=== PATIENT | female | born 1950 | race Caucasian/White ===

== ENCOUNTER → 2017-08-02 | Outpatient (CLI) | payer MEDICARE, OTHER ==
[2017-08-02 09:44] LABS: HCT 42.3 % (34.0-46.0); HGB 14.1 gm/dL (11.4-16.0); MCH 32.1 pg (25.0-35.0); MCHC 33.3 g/dL (31.0-37.0); MCV 96.2 fL (80.0-100.0); Mean Platelet Volume 7.3; Platelet Count 267 k/uL (150-450); RBC 4.39 m/uL (3.80-5.40); RDW 13.7 % (11.5-15.5); WBC 10.5 k/uL (3.8-10.6)
[2017-08-02 10:31] LABS: ALT 25 U/L (9-52); AST 18 U/L (14-36); Albumin 3.7 g/dL (3.5-5.0); Alkaline Phosphatase 107 U/L (38-126); Anion Gap 12 mmol/L; Blood Urea Nitrogen 24 mg/dL (7-17); Calcium 9.6 mg/dL (8.4-10.2); Carbon Dioxide 25 mmol/L (22-30); Chloride 107 mmol/L (98-107); Cholesterol 162 mg/dL (<200); Glucose 93 mg/dL (74-99); HDL Cholesterol 33 mg/dL (40-60); LDL Cholesterol,Calculated 102 mg/dL (0-99); Potassium 4.3 mmol/L (3.5-5.1); Sodium 144 mmol/L (137-145); Total Bilirubin 0.4 mg/dL (0.2-1.3); Total Protein 6.6 g/dL (6.3-8.2); Triglycerides 134 mg/dL (<150)
== END | disposition home or self-care (01) ==
LOC: LABWHC1 09:07
PROVIDERS: ATTEND Internal Medicine Clinical Cardiac Electrophysiology
DX: E78.5 Hyperlipidemia, unspecified (principal); I82.409 Acute embolism and thrombosis of unspecified deep veins of unspecified lower extremity; I42.9 Cardiomyopathy, unspecified; I20.9 Angina pectoris, unspecified
CPT/HCPCS: 36415; 80053; 80061; 84443; 85027

== ENCOUNTER 2017-08-05 09:07 | Day surgery (SDC) | payer MEDICARE ==
[2017-07-30 12:14] VITALS: BMI 31.6
[~2017-08-05 09:07] MED LIST: ALPRAZolam 0.25 MG TAB PO PRN; ALPRAZolam 0.5 MG TAB PO PRN; ASPIRIN 325 MG TAB PO STA; NITROGLYCERIN SL TABS 0.4 MG TAB SUBLINGUAL PRN; SODIUM CHLORIDE 0.9% 1,000 ML in EMPTY BAG 1 BAG IV ONE
[2017-08-05] MEDS ORDERED: ASPIRIN 81 MG ONE (09:52)
[2017-08-05] MEDS ORDERED: diphenhydrAMINE 50 MG/ML 1 ML VIAL ONE (10:59)
[2017-08-05] MEDS ORDERED: MIDAZOLAM 2 MG/2 ML VIAL ONE (10:59)
[2017-08-05] MEDS ORDERED: LIDOCAINE 2% INJ 20 MG/ML (20 ML MDV) ONE (11:04)
[2017-08-05] MEDS: MIDAZOLAM 2 MG/2 ML VIAL IV ONE ×2 (11:04→11:11)
[2017-08-05] MEDS ORDERED: diphenhydrAMINE 50 MG/ML 1 ML VIAL IVP ONE (11:06)
[2017-08-05] MEDS ORDERED: LIDOCAINE 2% INJ 20 MG/ML SQ ONE (11:11)
[2017-08-05] MEDS ORDERED: fentaNYL (PF) 50 MCG/ML 2 ML AMP ONE (11:15)
[2017-08-05] MEDS ORDERED: fentaNYL (PF) 50 MCG/ML 2 ML AMP IV ONE (11:17)
[2017-08-05] MEDS ORDERED: HEPARIN SODIUM 1,000 UN/ML (10ML VL) ONE (11:37)
[2017-08-05] MEDS ORDERED: NITROGLYCERIN 1000MCG/10ML SYRINGE INTRACORON ONE (11:46)
[2017-08-05] MEDS ORDERED: ADENOSINE 90 MG in SODIUM CHLORIDE 0.9% 60 ML IVP ONE (11:48)
[2017-08-05] MEDS ORDERED: SODIUM CHLORIDE 0.9% IV STA (11:56)
[2017-08-05] MEDS ORDERED: AMINOPHYLLINE IV STA (11:56)
[2017-08-05] MEDS ORDERED: RX INFO: IV CONTRAST WAS GIVEN 1 EACH MISC MISCELLANE PRN (12:08)
[2017-08-05] MEDS ORDERED: AMINOPHYLLINE 250 MG/10 ML VIAL IV ONE (12:10)
[2017-08-05] MEDS ORDERED: SODIUM CHLORIDE 0.9% 1,000 ML IV SCH (12:15)
[2017-08-05] MEDS ORDERED: IOPAMIDOL-370 125ML BTL INJ ONE (12:15)
[2017-08-05] MEDS ORDERED: ALBUTEROL NEBULIZED 2.5 MG/3 ML INHALATION PRN (13:16)
[2017-08-05] MEDS ORDERED: ALPRAZolam 1 MG TAB PO PRN (13:16)
--- NOTE | 2017-08-05 13:36 | CC ---
CARDIAC CATHETERIZATION REPORT DATE OF PROCEDURE: 08/05/2017 PROCEDURE: 1. Left heart catheterization and coronary angiography. 2. Fractional flow reserve assessment of proximal circumflex lesion. PERFORMED BY: Dr. Ar Swenson. Moderate conscious sedation time was 45 minutes. The patient was administered Versed, fentanyl and Benadryl. Her EKG, vital signs and oxygen saturation was monitored closely. CLINICAL INFORMATION: Mrs. Funmilayo Obrien is a 67-year-old lady with a history of hypertension, hyperlipidemia and who smokes about a pack a day or more. She has been having symptoms suggestive of angina with a negative stress test. In 2009, she had a cardiac cath which revealed a right-dominant system without significant disease. Because of ongoing symptoms in spite of negative stress test because of significant risk factors, she was advised coronary angiography after evaluation by Dr. Jarquin. I spoke to the patient at length and gave her the rationale, risks, benefits and options. She understood all details and wished to proceed with the procedure. PROCEDURE NOTE: Under local anesthesia and strict aseptic precautions, a 6-Italian introducer was placed in the right femoral artery. Standard Izaiah catheters were used to perform coronary angiography and I used a pigtail catheter to check LV pressures but did not perform LV gram. Following the diagnostic cath because of a significant proximal lesion in the circumflex and a short left main, I performed FFR. For this, I used a short tipped JL4 guide catheter and a volcano wire. FFR was performed and iFR was performed. The iFR was 0.89. FFR was 0.86 and 0.90. Adenosine infusion was given as per protocol. Following the procedure, the decision was made not to pursue any intervention given the normal FFR. The sheath was taken out and manual compression used to secure hemostasis. Because of some wheezing, a single dose of aminophylline 125 mg IV push was given over 5 to 7 minutes. Patient tolerated the procedure well. The sheath will be pulled and hemostasis secured and she will have a FemoStop for 4 hours. CARDIAC CATHETERIZATION FINDINGS: The left ventricle end-diastolic pressure was about 15 mmHg without any gradient across aortic valve. CORONARY ANGIOGRAPHY FINDINGS: RIGHT CORONARY ARTERY: Technically dominant vessel, has moderate calcification in the proximal half of the vessel. In the midportion, there is about a 40% to 45% narrowing, smooth without significant disease. The caliber then improves. Distally, it bifurcates into PDA and PLV, both of which supply a sizable amount of myocardium. The mid RCA therefore has a 45% lesion eccentric without any critical lesion. LEFT MAIN CORONARY ARTERY: Very short patent vessel that immediately bifurcates into LAD and circumflex. No significant disease. LEFT ANTERIOR DESCENDING CORONARY ARTERY: Good caliber vessel extends along the anterior wall, moderate calcification gives off septal and diagonal branches, runs all the way to the apex supplying a sizable amount of myocardium. There are 2 diagonal branches of good caliber and then gives off a septal branch and the LAD runs all the way to the apex and distal one-fourth has diffuse disease and tortuosity, but no significant disease in the left anterior descending coronary artery. LEFT POSTERIOR CIRCUMFLEX CORONARY ARTERY: Technically a nondominant vessel. Single obtuse marginal that runs laterally. Very proximally, there is a lesion of about 50% seen. It appears to be a 50% plaque evident in caudal projections. LEFT VENTRICULOGRAM: This was not performed. FINAL IMPRESSION: This patient has a 45% mid RCA lesion and a 50% to 55% proximal circumflex lesion. No significant critical lesions were noted. This is a right dominant system and normal filling pressures. LV gram was not performed. Following the diagnostic cath, I used a standard left Izaiah catheter with a short tip to cannulate the left coronary artery. The patient received 5000 units of intravenous heparin. A Digly wire was used to cross the lesion. Wire was kept distally. I performed an iFR and FFR. The iFR was 0.89. FFR on 2 separate occasions was 0.86 and 0.90. This suggests that the circumflex lesion was not significant and therefore no intervention was performed. The sheath was taken out. Hemostasis secured with manual compression and FemoStop will be applied. Results were discussed with the patient and family. Aggressive risk factor modification including smoking cessation and LDL cholesterol of under 70 is advised. I am increasing the Lipitor from 40 to 80 mg daily and discussed with the patient regarding the need to quit smoking. I expect she will be discharged later on today and will see Dr. Jarquin in one week after discharge. MMODL / IJN: [id number] /
[2017-08-05 19:38] VITALS: RESP 16; TEMP 98
[2017-08-05] MEDS ORDERED: ATORVASTATIN 80 MG TAB PO SCH (21:00)
[2017-08-05] MEDS ORDERED: FAMOTIDINE 20 MG TAB PO SCH (21:00)
[2017-08-05 21:39] VITALS: BP 100/50; PULSE 66
[2017-08-06] MEDS ORDERED: CHOLECALCIFEROL 1,000 UNIT TAB PO SCH (09:00)
[2017-08-06] MEDS ORDERED: NON-FORMULARY DRUG (Krill/Om-3/Dha/Epa/Phospho/Ast [Omega-3 Krill Oil 300 Mg Sfgl] 1 EACH) PO SCH (09:00)
[2017-08-06] MEDS ORDERED: CYANOCOBALAMIN 500 MCG TAB PO SCH (09:00)
[2017-08-06] MEDS ORDERED: ISOSORBIDE MONONITRATE 10 MG TAB PO SCH (09:00)
[2017-08-06] MEDS ORDERED: ATENOLOL 12.5 MG TAB PO SCH (09:00)
[2017-08-06] MEDS ORDERED: LISINOPRIL-HCTZ 20-12.5 MG 1 EACH TAB PO SCH (09:00)
[2017-08-06] MEDS ORDERED: ASPIRIN 81 MG PO SCH (21:00)
== END 2017-08-05 21:15 | disposition home or self-care (01) ==
LOC: CATHCVL 09:07 → 3OBS 11:56 → CATHCVL 21:15
PROVIDERS: ATTEND Internal Medicine Interventional Cardiology
DX: I25.110 Atherosclerotic heart disease of native coronary artery with unstable angina pectoris (principal); I10 Essential (primary) hypertension; E78.00 Pure hypercholesterolemia, unspecified; F17.210 Nicotine dependence, cigarettes, uncomplicated; Z82.49 Family history of ischemic heart disease and other diseases of the circulatory system; M79.1 Myalgia; Z79.82 Long term (current) use of aspirin; Z79.899 Other long term (current) drug therapy
CPT/HCPCS: 93571; 93458; C1887; C1769 ×3; C1894; J2001; J2250; J1200; J3010; J0153; J1644; J0280; Q9967

== ENCOUNTER 2018-10-17 07:49 | Day surgery (SDC) | payer MEDICARE, OTHER ==
[2018-10-14 15:25] VITALS: BMI 31.4
[2018-10-17] MEDS ORDERED: SODIUM CHLORIDE 0.9% 1,000 ML IV ONE (08:08)
[2018-10-17 08:28] VITALS: PULSE 62; RESP 20; TEMP 98.1
[2018-10-17] MEDS ORDERED: fentaNYL (PF) 50 MCG/ML 2 ML AMP ONE (08:53)
[2018-10-17] MEDS: BENZOCAINE SPRAY 1 CAN MUCOUS MEM ONE ×3 (09:01→09:10)
[2018-10-17] MEDS: fentaNYL (PF) 50 MCG/ML 2 ML AMP IVP ONE ×2 (09:15→09:17)
[2018-10-17] MEDS: MIDAZOLAM (PF) 2 MG/2 ML VIAL IVP ONE ×2 (09:15→09:17)
[2018-10-17] MEDS ORDERED: MIDAZOLAM (PF) 2 MG/2 ML VIAL IVP ONE (09:20)
[2018-10-17] MEDS ORDERED: SODIUM CHLORIDE 0.9% 1,000 ML IV SCH (09:45)
--- NOTE | 2018-10-17 09:46 | P.TEE ---
Indications for Procedure(s): Assessment of aortic stenosis Date of Procedure: 10/17/18 Preoperative Diagnosis: Severe aortic stenosis Postoperative Diagnosis: Moderate to severe aortic stenosis Description of Procedure(s): INDICATION: This is a 68-year-old female being followed by Dr. Jarquin. She has been complaining of exertional shortness of breath and her surface echo Cardec gram was suggestive of severe aortic stenosis with a peak gradient of 50. Patient is advised to have DOMO examination for further evaluation. CONSENT: Informed verbal consent was obtained from the patient PROCEDURE: Patient was brought to the lab in a fasting state. Patient was prepped and draped in the usual fashion. Patient was given IV Versed 3 mg and fentanyl 50 g. Duration of the procedure was 90 minutes. The throat was sprayed with Cetacaine. A lubricated Omni probe was introduced into the oropharynx and was advanced into the esophagus. Views were obtained, both from the esophagus and stomach. Color, pulsed and Doppler studies were performed. 7. Contrast bubble injection was also performed. Patient tolerated the procedure well FINDINGS:. The aortic valve is tricuspid with restricted opening excursion. The valve seemed to be mildly calcified. By planimetry, evaluate EF 0.8 cm was obtained. A peak gradient of about 33 with a mean of 22 was obtained. There is mild aortic regurgitation. The mitral valve appeared to be normal with mild central regurgitation. The left atrial appendage is free of any clot. The appendages appear to be small. The interatrial septum is intact. There is no evidence of shunt across the interatrial septum. No evidence of PFO. Left atrium is enlarged. Left ventricle size and function appear to be normal. The aorta showed mild plaque IMPRESSION: #1. Tricuspid aortic valve with moderate to severe stenosis. Further evaluation with cardiac catheterization may be necessary if patient is symptomatic. Mild aortic regurgitation. #2. Mild mitral regurgitation. #3. No PFO #4. No clot in the left atrial appendage. #5. Preserved LV function. #6. Mild plaque in the aorta PLAN: Continue medical therapy. Consider cardiac catheterization if patient is symptomatic. May need aortic valve replacement in the near future.
[2018-10-17 11:11] VITALS: BP 120/92
== END 2018-10-17 11:20 | disposition home or self-care (01) ==
LOC: CATHCVL 07:49
PROVIDERS: ATTEND Internal Medicine Cardiovascular Disease
DX: I08.0 Rheumatic disorders of both mitral and aortic valves (principal); I10 Essential (primary) hypertension; I25.10 Atherosclerotic heart disease of native coronary artery without angina pectoris; F17.210 Nicotine dependence, cigarettes, uncomplicated; E78.5 Hyperlipidemia, unspecified; Z71.6 Tobacco abuse counseling; Z79.899 Other long term (current) drug therapy; Z88.6 Allergy status to analgesic agent; Z88.8 Allergy status to other drugs, medicaments and biological substances; Z82.49 Family history of ischemic heart disease and other diseases of the circulatory system
CPT/HCPCS: 93312; 93320; 93325; J3010; J2250

== ENCOUNTER → 2018-10-21 | Outpatient (CLI) | payer MEDICARE, OTHER ==
--- NOTE | 2018-10-21 21:05 | CONS ---
CONSULTATION REASON FOR CONSULTATION: Sleep apnea. 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 As part of further investigation, sleep apnea was suspected and based on that, the patient was referred to me. She has loud snoring. She goes to bed at 11:30 p.m., wakes up 6:30 a.m. in the morning. At times, she is non refreshed and she can easily take naps during the day. Her current Macclesfield score is twelve. No recent weight gain. Overall her weight has been stable over the past 1 year. No witnessed apneas. She has excessive fatigue and sleepiness during the day. PAST MEDICAL HISTORY: Hypertension, hyperlipidemia, cardiac murmur and history of smoking. PAST SURGICAL HISTORY: Includes foot surgery, ganglion cyst removal. ALLERGIES: DRUG ALLERGIES TO VICOPROFEN AND NEXIUM. SOCIAL HISTORY: Smokes one pack of cigarettes a day. No history of alcohol. No history of IV drugs. FAMILY HISTORY: Negative for sleep breathing disorder. Her mother had COPD and chronic hypoxic respiratory failure. REVIEW OF SYSTEMS: Fourteen-point review of system was done. Positive findings are mentioned above in history of present illness. No significant cardiac arrhythmias. No syncope. No altered mentation. No headaches. No sleep paralysis. No hallucinations. No cataplexy. No history of any motor vehicle accident because of feeling drowsy or sleepy. She sleeps on her side. She wakes up a few times in the middle of the night. Sometimes to use the bathroom. PHYSICAL EXAMINATION: BP is 129/70, pulse 80, respirations 16, temperature 98.1, saturation 97% on room air. Height is 4 feet, 11 inches. Weight is 159. Neck size 14.5 inches, BMI 32. Macclesfield score is 12. Temperature 98.1. General appearance: Calm, comfortable. Head is atraumatic, normocephalic. NECK: Supple. No JVD. No goiter or neck masses. Mallampati class IV. LUNGS: Clear to auscultation. HEART: Sounds are regular rate and rhythm. Normal S1, S2. No S3. No S4, no murmur. The patient has a murmur grade 3/6. ABDOMEN: Soft, nontender. No organomegaly. EXTREMITIES: No edema. No cyanosis or clubbing. NEUROLOGIC: Alert and oriented x3. There is no focal neurological deficits. PSYCHIATRIC: Negative for anxiety or depression. IMPRESSION: 1. Snoring with low likelihood for sleep apnea. 2. Cardiac murmur currently under investigation. 3. Hypertension. 4. Hyperlipidemia. 5. History of smoker. PLAN: 1. Set up this patient for a screening test, this could be either in the form of HSV versus PSG. 2. The patient is well known to me. I have taken care of her family members including her mother and several aunts and cousins. I am going to contact the patient back once the screening study is completed to discuss the results and make future plans. MIKA / MANISHN: [id number] /
== END | disposition home or self-care (01) ==
LOC: SLEEP 15:58
PROVIDERS: ATTEND Internal Medicine Critical Care Medicine
DX: R06.83 Snoring (principal); R01.1 Cardiac murmur, unspecified; I10 Essential (primary) hypertension; E78.5 Hyperlipidemia, unspecified; F17.210 Nicotine dependence, cigarettes, uncomplicated; Z88.5 Allergy status to narcotic agent; Z88.6 Allergy status to analgesic agent; Z88.8 Allergy status to other drugs, medicaments and biological substances
CPT/HCPCS: 99211

== ENCOUNTER → 2019-04-08 | Outpatient (CLI) | payer MEDICARE, OTHER ==
--- NOTE | 2019-04-08 13:20 | CT ---
EXAMINATION TYPE: CT chest wo con DATE OF EXAM: 04/08/2019 COMPARISON: 829 HISTORY: Abnormal chest x-ray. Difficulty breathing. CT DLP: 354.[address] of the chest was performed with lung and mediastinal window settings submitted. The la ck of contrast limits evaluation of the vascular, mediastinal and parenchymal structures including th e upper abdomen. LUNGS: The lungs are clear and free of infiltrate. No atelectasis. Biapical Scarring noted. Mild uppe r lobe emphysematous change. No pulmonary nodule or mass is detected. No pleural effusion. No CT ev idence of interstitial lung disease. MEDIASTINUM/CORA: Thoracic aorta is of normal caliber with limited evaluation given lack of contrast . The heart is not enlarged. No evidence for mediastinal mass. No lymph nodes greater than 1cm. UPPER ABDOMEN: No significant abnormality is seen. OTHER: No significant other abnormality. IMPRESSION: 1. Biapical Scarring noted. Mild upper lobe emphysematous change.
== END | disposition home or self-care (01) ==
LOC: RADCTMAIN 12:55
PROVIDERS: ATTEND Internal Medicine Sleep Medicine
DX: J43.9 Emphysema, unspecified (principal); J98.4 Other disorders of lung
CPT/HCPCS: 71250

== ENCOUNTER → 2021-09-19 | Outpatient (CLI) | payer MEDICARE, OTHER ==
[2021-09-19 22:51] LABS: HCT 41.6 % (37.2-46.3); HGB 12.8 g/dL (12.0-15.0); MCH 31.4 pg (27.0-32.0); MCHC 30.8 g/dL (32.0-37.0); MCV 102.2 fL (80.0-97.0); NRBC Per 100 WBC 0 /100 WBCS (0.0-0.0); Platelet Count 229 X 10*3/uL (140-440); RBC 4.07 X 10*6/uL (4.10-5.20); RDW 13.7 % (11.5-14.5); WBC 8.02 X 10*3/uL (4.50-10.00)
[2021-09-19 23:28] LABS: African American GFR (CKD) 61.2 (60.0-200.0); Anion Gap 11.7 mmol/L (10.00-18.00); Blood Urea Nitrogen 16.6 mg/dL (9.0-27.0); Carbon Dioxide 26.3 mmol/L (20.0-27.5); Non-African American GFR(CKD) 52.8 (60.0-200.0); Potassium 4.5 mmol/L (3.5-5.5)
== END | disposition home or self-care (01) ==
LOC: LABPAT 13:42
PROVIDERS: ATTEND Internal Medicine
DX: Z01.812 Encounter for preprocedural laboratory examination (principal); I35.0 Nonrheumatic aortic (valve) stenosis
CPT/HCPCS: 36415; 80051; 82565; 84520; 85027

== ENCOUNTER 2021-09-20 10:10 | Day surgery (SDC) | payer MEDICARE, OTHER ==
[~2021-09-20 10:10] MED LIST changes: +ASPIRIN 325 MG TAB PO ONE; -ASPIRIN 325 MG TAB PO STA; +ATORVASTATIN 80 MG TAB PO ONE; +HEPARIN SODIUM,PORCINE 10,000 UNIT in SODIUM CHLORIDE 0.9% 1,000 ML IRRIGATION PRN; +HEPARIN SODIUM,PORCINE 2,500 UNIT in SODIUM CHLORIDE 0.9% 250 ML IRRIGATION PRN; -SODIUM CHLORIDE 0.9% 1,000 ML in EMPTY BAG 1 BAG IV ONE
[2021-09-20] MEDS ORDERED: SODIUM CHLORIDE 0.9% 1,000 ML IV ONE ×2 (10:45)
[2021-09-20 10:55] VITALS: TEMP 98.3
[2021-09-20] MEDS ORDERED: fentaNYL (PF) 50 MCG/ML 2 ML AMP ONE ×2 (11:47)
[2021-09-20] MEDS: BENZOCAINE SPRAY 1 CAN MUCOUS MEM ONE ×2 (12:06→12:20)
[2021-09-20] MEDS: fentaNYL (PF) 50 MCG/ML 2 ML AMP IVP ONE ×2 (12:20→12:22)
[2021-09-20] MEDS ORDERED: MIDAZOLAM 2 MG/2 ML VIAL IVP ONE ×2 (12:20→12:21)
[2021-09-20] MEDS ORDERED: VERAPAMIL 2.5 MG/ML 2 ML AMP ONE (12:38)
[2021-09-20] MEDS ORDERED: LIDOCAINE 1% INJ 10MG/ML (5 ML VIAL-PF) SQ ONE (13:00)
[2021-09-20] MEDS ORDERED: HEPARIN SODIUM 1,000 UN/ML (10ML VL) ONE (13:02)
[2021-09-20] MEDS: VERAPAMIL SYRINGE (5 MG/10 ML) INTRAARTER ONE ×2 (13:05→13:12)
[2021-09-20] MEDS ORDERED: HEPARIN SODIUM 1,000 UN/ML (10ML VL) IV ONE (13:10)
[2021-09-20] MEDS ORDERED: IOPAMIDOL-370 125ML BTL INJ ONE (13:14)
[2021-09-20 14:47] VITALS: RESP 16
[2021-09-20 16:39] VITALS: BP 110/51; PULSE 44
--- NOTE | 2021-09-20 19:57 | P.TEE ---
Description of Procedure(s): Procedure performed: Transesophageal Echocardiogram with color flow doppler, pulsed wave doppler and continuous wave doppler, moderate conscious sedation Moderate conscious sedation: Moderate conscious sedation was supplied by myself with Versed and Fentanyl Complications: none Indications: Severe aortic stenosis PROCEDURE: After the risks, benefits and alternatives of the above mentioned procedure was explained in detail with the patient, informed consent was obtained. Patient was brought to the lab in a fasting state. Patient was given sedation with Versed and Fentanyl. The throat was sprayed with Hurricane to anesthetize the throat. A lubricated Omni probe was then introduced into the esophagus and stomach and multiple views were obtained. 2D echo with color flow doppler, pulsed wave doppler and continuous wave doppler was utilized. Agitated saline bubbles were injected to assess for any intra-atrial shunt. The probe was then removed. Patient tolerated the procedure well. Patient was transferred to the post procedure area in stable and satisfactory condition. FINDINGS: 1. The aortic valve is tricuspid and has severe calcification predominantly of the commissures with some preserved movement of the aortic leaflet tips. There is however severe aortic stenosis with decreased leaflet excursion and KENA of 0.5cm2 by planimetry. There is no significant aortic regurgitation. 2. The mitral valve appears be normal with mild mitral regurgitation. 3. Tricuspid valve appears to be normal without significant TR. 4. The interatrial septum is intact. No evidence of PFO. 5. Left atrial appendage is free of clot. 6. Left ventricular function is normal with EF 55-60%.
--- NOTE | 2021-09-20 20:03 | P.CARDCATH ---
Description of Procedure: PROCEDURES PERFORMED: Bilateral coronary angiography INDICATION: Severe aortic stenosis CONSENT:I have discussed the risks, benefits and alternative therapies for the above-mentioned procedure and for both sedation/analgesia as well as necessary blood product administration, if indicated, as they pertain to this patient. The patient has indicated understanding and acceptance of the risks and procedures discussed. PROCEDURE: After the risks, benefits and alternatives of the above mentioned procedure explained in detail with the patient, informed consent was obtained. Patient was taken to the catheterization lab and prepped and draped in usual fashion. 1% lidocaine was used to anesthetize the right radial artery. A 6-Kamari formerly [facility] sheath was placed in the right radial artery using modified Seldinger technique. Left coronary angiography was performed with a 5-Icelandic JL 3.5 catheter and right coronary angiography was performed with a 5-Icelandic FR5 catheter in various views. Due to spasm no attempts were made at crossing the valve. The right radial sheath was removed and a TR band was placed with hemostasis achieved. The patient tolerated the procedure well. Patient was transported back to the post catheterization holding area in stable condition. Conscious Sedation: Patient was monitored under the direct supervision of vision of myself for conscious sedation using Versed and fentanyl for a total duration of 31 minutes Aorta: 128/78 SELECTIVE CORONARY ARTERIOGRAPHY: LEFT MAIN: The left main is a large caliber vessel which bifurcates into the LAD and circumflex. There is no significant stenosis. LEFT ANTERIOR DESCENDING CORONARY ARTERY: LAD is a large caliber vessel which wraps around to the apex. There are mild luminal irregularities of the LAD. LEFT CIRCUMFLEX CORONARY ARTERY: Left circumflex is a moderate caliber vessel. There is a proximal circumflex 30-40% stenosis at the ostium. RIGHT CORONARY ARTERY: The right coronary artery is a large caliber vessel which gives off a PDA and PLV branch and is the dominant vessel. There is diffuse mild 20-30% proximal and mid RCA stenosis. FINAL IMPRESSION: 1. Mild CAD as described above including 30-40% proximal circumflex, 20-30% RCA stenosis. PLAN: 1. Aggressive risk factor modification per most recent ACC/AHA guidelines. 2. Continue with medical therapy, evaluate for AVR.
== END 2021-09-20 16:35 | disposition home or self-care (01) ==
LOC: CATHCVL 10:10
PROVIDERS: ATTEND Internal Medicine
DX: I25.10 Atherosclerotic heart disease of native coronary artery without angina pectoris (principal); Z20.822 Contact with and (suspected) exposure to COVID-19
CPT/HCPCS: 93454; 93312; 93320; 93325; 87635; C1769; C1894; J2250; J2001; J3010; J1644; Q9967

== ENCOUNTER 2021-10-05 06:25 | Outpatient (CLI) | payer MEDICARE, OTHER ==
[2021-10-05 07:33] LABS: Basophils # (A) 0.1 k/uL (0-0.2); Basophils % (A) 2 %; Eosinophils # (A) 0.6 k/uL (0-0.7); Eosinophils % (A) 8 %; HCT 39.3 % (34.0-46.0); HGB 12.5 gm/dL (11.4-16.0); Lymphocytes # (A) 2.3 k/uL (1.0-4.8); Lymphocytes % (A) 28 %; MCH 31.5 pg (25.0-35.0); MCHC 31.7 g/dL (31.0-37.0); MCV 99.2 fL (80.0-100.0); Monocytes # (A) 0.7 k/uL (0-1.0); Monocytes % (A) 9 %; Neutrophils # (A) 4.3 k/uL (1.3-7.7); Neutrophils % (A) 52 %; Platelet Count 253 k/uL (150-450); RBC 3.96 m/uL (3.80-5.40); RDW 13.3 % (11.5-15.5); WBC 8.3 k/uL (3.8-10.6)
[2021-10-05 07:59] LABS: ALT 18 U/L (4-34); African American GFR (CKD) 73 (>60 ml/min/1.73 sqM); Albumin 3.8 g/dL (3.5-5.0); Albumin/Globulin Ratio 1.4; Anion Gap 7 mmol/L; Blood Urea Nitrogen 23 mg/dL (7-17); Calcium 9.3 mg/dL (8.4-10.2); Carbon Dioxide 27 mmol/L (22-30); Chloride 107 mmol/L (98-107); Globulin 2.8 g/dL; Glucose 93 mg/dL (74-99); Non-African American GFR(CKD) 63 (>60 ml/min/1.73 sqM); Sodium 141 mmol/L (137-145); Total Bilirubin 0.7 mg/dL (0.2-1.3); Total Protein 6.6 g/dL (6.3-8.2)
[2021-10-05 08:00] LABS: Potassium 4.5 mmol/L (3.5-5.1)
[2021-10-05 08:01] LABS: AST 29 U/L (14-36); Alkaline Phosphatase 145 U/L (38-126)
--- NOTE | 2021-10-05 12:09 | CT ---
EXAMINATION TYPE: CT TAVR Planning DATE OF EXAM: 10/05/2021 HISTORY: Nonrheumatic Aortic (valve) Insufficiency CT DLP: 1825.1 mGycm Automated Exposure Control for Dose Reduction was Utilized. CONTRAST: CT scan of the chest, abdomen and pelvis is performed without and with IV Contrast, patient injected with 125 mL of Isovue 370. COMPARISON: CT dated 04/08/2019 TECHNIQUE: Helical imaging obtained through the chest, abdomen and pelvis during arterial phase benjamin afshin administration of radiographic contrast intravenously. FINDINGS: See report from [facility] regarding preprocedural planning CHEST: Lower Neck and Thyroid: No significant findings Lungs: Right apical posterior scarring with smaller one on the left side. COPD changes with centrilob ular emphysematous changes mainly involving the upper lobes, possibly smoking related. Stable 10 mm n odule along the left oblique fissure, unchanged since 2012 CT scan. Central Airway: No significant findings Pleura: No pleural effusion or pneumothorax Pulmonary Arteries: No significant findings Heart and Pericardium: Aortic root calcifications. No gross cardiomegaly. Coronary and arterial ather osclerotic calcifications. Apparent significant stenosis of the origin of the left internal carotid a rtery. Lymph Nodes: Scattered subcentimeter hilar and mediastinal lymph nodes, stable. Mediastinum & Esophagus: No significant findings ABDOMEN/PELVIS: Please note arterial phase of the imaging limits detailed evaluation of the solid abdominal organs. 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 Right parapelvic renal cys t without suspicious feature. Unremarkable kidneys otherwise. Adrenal Glands: No significant findings Pancreas: No significant findings Gallbladder: No significant findings Bowel and Mesentery: Uncomplicated colonic diverticulosis. Lymph Nodes: No pathologically enlarged abdominal or pelvic lymph nodes. Urinary Bladder: No significant findings Pelvic Organs: No significant findings Other: Extensive arterial atherosclerotic calcifications. 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 Grade 1 degenerative anterolisthesis of L4 over L5. Marked degenerative changes at L5-S1 leve l. Other Lines/Tubes/Devices/Hardware: None IMPRESSION: Presurgical planning CT scan demonstrating findings as described above.
[2021-10-05 15:50] LABS: Chol/HDL Ratio 5.86 Ratio; LDL Cholesterol,Calculated 90.5 mg/dL (0.0-131.0)
[2021-10-05 22:47] LABS: Hepatitis A Antibody IgM Nonreactive (Nonreactive); Hepatitis B Core IgM Nonreactive (Nonreactive); Hepatitis B Surface Antigen Nonreactive (Nonreactive); Hepatitis C IgG Antibody Nonreactive (Nonreactive)
== END 2021-10-05 15:23 | disposition home or self-care (01) ==
LOC: LABWHC1 06:25
PROVIDERS: ATTEND Thoracic Surgery (Cardiothoracic Vascular Surgery)
DX: Z01.812 Encounter for preprocedural laboratory examination (principal); I35.1 Nonrheumatic aortic (valve) insufficiency; E87.8 Other disorders of electrolyte and fluid balance, not elsewhere classified; Z79.899 Other long term (current) drug therapy; R58 Hemorrhage, not elsewhere classified; E07.9 Disorder of thyroid, unspecified; R35.0 Frequency of micturition; Z79.01 Long term (current) use of anticoagulants; E11.9 Type 2 diabetes mellitus without complications; N28.9 Disorder of kidney and ureter, unspecified; E78.5 Hyperlipidemia, unspecified
CPT/HCPCS: 94150; 83880; 80061; 80053; 80074; 84443; 83735; 85025; 83036; 71275; 74174; 36415; Q9967

== ENCOUNTER → 2021-10-16 | Outpatient (CLI) | payer MEDICARE, OTHER | END | disposition home or self-care (01) | LOC: LABWHC1 15:33 | PROVIDERS: ATTEND Thoracic Surgery (Cardiothoracic Vascular Surgery) | DX: Z01.818 Encounter for other preprocedural examination (principal) | CPT/HCPCS: 86850; 86900; 86901 ==

== ENCOUNTER 2021-10-18 07:13 | Inpatient (IN) | payer MEDICARE, OTHER ==
[~2021-10-18 07:13] MED LIST changes: -ALPRAZolam 0.25 MG TAB PO PRN; -ALPRAZolam 0.5 MG TAB PO PRN; +ATORVASTATIN 10 MG TAB PO ONE; -ATORVASTATIN 80 MG TAB PO ONE; +CLEVIDIPINE BUTYRATE 25 MG in EMPTY BAG 1 BAG IV PRN; +CLOPIDOGREL 75 MG TAB PO ONE; +ELECTROLYTE-A SOLUTION 1,000 ML with POTASSIUM CHLORIDE 100 MEQ, MAGNESIUM SULFATE 16 M... IV PRN; -HEPARIN SODIUM,PORCINE 10,000 UNIT in SODIUM CHLORIDE 0.9% 1,000 ML IRRIGATION PRN; -HEPARIN SODIUM,PORCINE 2,500 UNIT in SODIUM CHLORIDE 0.9% 250 ML IRRIGATION PRN; +INSULIN REGULAR 100 UNIT in SODIUM CHLORIDE 0.9% 100 ML IV PRN; +LACTATED RINGERS 1,000 ML IV SCH; +METOPROLOL TARTRATE 12.5 MG TAB PO ONE; -NITROGLYCERIN SL TABS 0.4 MG TAB SUBLINGUAL PRN; +NITROGLYCERIN-D5W PMX 25 MG/250 ML BTL IV PRN; +PROTAMINE SULFATE 250 MG in EMPTY BAG 1 BAG IV PRN; +SODIUM CHLORIDE 0.9% 500 ML 500 ML INTRAARTER PRN; +TRANEXAMIC ACID 2,000 MG in SODIUM CHLORIDE 0.9% 80 ML IV PRN
[2021-10-18 07:46] LABS: Glucose,Whole Blood 139 mg/dL (70-110)
[2021-10-18 08:34] LABS: Prothrombin Time 10.8 sec (9.0-12.0)
[2021-10-18] MEDS ORDERED: IOPAMIDOL-370 125ML BTL INJ ONE (11:54)
[2021-10-18] MEDS ORDERED: IOPAMIDOL-370 50ML BTL INJ ONE ×2 (11:54)
[2021-10-18] MEDS ORDERED: LACTATED RINGERS 1,000 ML IV ONE (12:00)
--- NOTE | 2021-10-18 13:30 | P.ANPRN ---
Procedure Note - Anesthesia - Invasive Line Right Arterial Line Time Out Performed: Yes Date of Procedure: 10/18/21 Location of Patient: Endo Preparation: Sterile Prep, Sterile Dressing Arterial Line Location: Radial Ultrasound Used: No Purpose - Visualization and Identification of Vasculature: No Image Stored and Saved: No Narrative: Central line placement per sterile protocol utilized. Informed consent obtained from the patient. Procedure was performed under complete aseptic precautions. The right wrist is slightly extended and placed on a roll of cloth. Radial artery palpated and appeared to have a intact collateral circulation. Front of the wrist was cleaned with ChloraPrep. It was draped and 2 mL of 1% lidocaine was infiltrated and ability into the front of the wrist. A 20-gauge two and half inch Arrow arterial catheter was inserted and a bright red blood/back was noticed. It was connected to the pressure monitoring line and the flashback was confirmed. The line was sutured into the skin. Tegaderm dressing was applied. Patient tolerated the procedure very well with no apparent complications. - DOMO Intraop Pre Bypass DOMO Intraop - Anesthesia Indication: Transcatheter aortic valve replacement Date of Procedure: 10/18/21 Pre-operative Diagnosis: Severe aortic stenosis Post-operative Diagnosis: Severe aortic stenosis status post aortic valve replacement Surgeon: Nirav Villegas Left Ventricle: Ejection fraction 55-60% Ejection Fraction: Normal Regional Wall Motion Abnormalities: None Left Ventricle Hypertrophy: No R. Ventricle Function: Normal Aortic Valve: Trileaflet aortic valve. Severe aortic stenosis seen. Calcified aortic valve. Mean gradient 42 mmHg peak gradient 59 mmHg. Anatomy: Trileaflet Aortic Stenosis: Severe Aortic Regurgitation: Trace Mitral Stenosis: None Mitral Regurgitation: Mild Tricuspid Stenosis: None Tricuspid Regurgitation: Trace Pulmonic Stenosis: None R. Atrial Dilation: No R. Atrial PFO: No L. Atrial Dilation: No Aortic Dissection: No - DOMO Intraop Post Bypass DOMO Intraop Post Bypass Procedure Performed: Transcatheter aortic valve replacement Ejection Fraction: Normal Regional Wall Motion Abnormalities: None R. Ventricle Function: Normal Aortic Valve: Prosthetic aortic valve was seen. Appears to be seated well. Mean gradient across the prosthetic valve is 6 mmHg and peak gradient is 8 mmHg. Trace paravalvular regurgitation seen. Mitral Valve: Unchanged Tricuspid: Unchanged Pulmonic: Unchanged Aortic Dissection: No
[2021-10-18] MEDS ORDERED: IPRATROPIUM 0.5 MG/2.5 ML NEBU INHALATION PRN (13:38)
[2021-10-18] MEDS ORDERED: Potassium Replacement Protocol 1 EACH MISC MISCELLANE PRN (13:38)
[2021-10-18] MEDS ORDERED: Magnesium Replacement Protocol 1 EACH MISC MISCELLANE PRN (13:38)
[2021-10-18] MEDS ORDERED: IPRATROPIUM-ALBUTEROL 3 ML NEB INHALATION PRN (13:38)
[2021-10-18] MEDS ORDERED: ONDANSETRON 4 MG/2 ML VIAL IVP PRN (13:38)
[2021-10-18] MEDS ORDERED: LACTATED RINGERS 1,000 ML IV SCH (13:38)
[2021-10-18] MEDS ORDERED: CALCIUM GLUCONATE IN NACL 2 GM in SALINE 1 100ML.BAG IVPB PRN (13:38)
[2021-10-18] MEDS ORDERED: hydrALAZINE HCL 20 MG/ML 1 ML VIAL IVP PRN (13:38)
[2021-10-18] MEDS ORDERED: ACETAMINOPHEN TAB 325 MG TAB PO PRN (13:38)
[2021-10-18 13:39] LABS: Glucose,Whole Blood 145 mg/dL (70-110)
--- NOTE | 2021-10-18 13:39 | P.OP ---
Date of Procedure: 10/18/21 Preoperative Diagnosis: Tricuspid aortic valve stenosis Postoperative Diagnosis: Same Procedure(s) Performed: Transcatheter aortic valve replacement with 26 mm evolute pro plus core valve via right transfemoral percutaneous approach Implants: 26 mm evolute pro+ core valve Anesthesia: APURVA Surgeon: Nirav Villegas Wardrobe Consultant #1: Dank Cornejo (First retail analyst) Wardrobe Consultant #2: Brendan Bob (Second retail analyst) Estimated Blood Loss (ml): 50 Pathology: none sent Condition: stable Disposition: ICU Indications for Procedure: 71-year-old obese female with symptomatic tricuspid calcific aortic valvular stenosis. She was evaluated in the valve clinic and felt to be appropriate candidate for transcatheter aortic valve replacement. Elective surgery was scheduled. Operative Findings: There were moderate gradient across the aortic valve by DOMO. Valve was heavily calcified and stenotic. Bilateral iliac arteries were small based on both angiography and ultrasound evaluation. Valve deployment led to excellent positioning of the valve with no significant regurgitation and excellent expansion of the valve frame. Completion angiography of the right iliofemoral vessels demonstrated excellent flow with no evidence of leak. Description of Procedure: Patient was brought to the catheterization laboratory and general anesthesia was induced. Anterior torso and bilateral groins were sterilely prepped and draped. Right subclavian vein was punctured with an 18-gauge needle and screw-in ventricular lead was manipulated in the apex of the right ventricle. Pacing thresholds were between 1 and 1.5 mV. Lead was secured to the skin at its exit site with silk sutures. Bilateral femoral access was obtained by Dr. Pritchard under ultrasound and fluoroscopic guidance. On the left a 5-[place] sheath was placed. On the right 6-[place] sheath was placed and a Perclose device was deployed. An 8-[place] sheath was then placed. The left sheath was extended up to a long 5-[place] sheath into the descending thoracic aorta. Through this a pigtail catheter was advanced into the coronary sinus of the aortic root. On the right stiff wire was advanced and the 8-[place] sheath exchanged for a 14- [place] sheath. This proceeded without difficulty. The patient was systemically heparinized. We able to successfully cross the valve from the right side straight wire and laser pigtail catheter in the apex of the ventricle. Transvalvular gave gradients were measured. A HW feed a wire was placed in the apex of the ventricle. 26 core valve was prepared on the back table and brought up on the field. It was checked under fluoroscopy. 14-[place] sheath was removed and the core valve delivery system exchanged over the current feed a wire through the right groin. We're unable to negotiate the core valve delivery system through the stenotic iliac artery. The 14-[place] sheath was replaced and we ballooned the iliac artery with a 6-[place] balloon. The Inferior wire was exchanged for a Lunderquist wire. Despite these interventions we continued to be unable to advance the core valve delivery system through the iliac artery. At this point we exchanged the 14-[place] sheath for an 18-[place] sheath. This went without event. We are now able to advance the core valve delivery system through the iliac system and up and across the aortic valve. At this point we exchanged the Lunderquist wire for the can feed a wire and positioned it appropriately in the apex. The valve was now deployed under rapid ventricular p acing with excellent deployment levels good expansion of the valve frame and no evidence of aortic insufficiency on DOMO. The valve deployment system was removed. Heparin was reversed with protamine. The 18-[place] sheath was pulled back into the external iliac artery. A stiff Glidewire was advanced from the left side across the LAD at bifurcation and down into the 18-[place] sheath. An 8 mm balloon was now brought into the right common iliac from the left groin and inflated. The 18-[place] sheath was now removed and the Perclose device deployed. Good hemostasis was obtained by Dr.'s Pritchard and Paulino. Completion angiography demonstrated excellent flow through the iliofemoral system with no evidence of dissection and the left-sided sheath was removed and hemostasis obtained with direct pressure.
[2021-10-18] MEDS ORDERED: SYMBICORT 80-4.5 MCG INHALER INHALATION PRN (13:51)
[2021-10-18] MEDS ORDERED: CLEVIDIPINE BUTYRATE 25 MG in EMPTY BAG 1 BAG IV SCH (14:00)
[2021-10-18 14:06] LABS: Basophils # (A) 0.1 k/uL (0-0.2); Basophils % (A) 1 %; Eosinophils # (A) 0.2 k/uL (0-0.7); Eosinophils % (A) 2 %; HCT 33.1 % (34.0-46.0); HGB 10.8 gm/dL (11.4-16.0); Hypochromasia Slight; Lymphocytes # (A) 1.4 k/uL (1.0-4.8); Lymphocytes % (A) 15 %; MCHC 32.6 g/dL (31.0-37.0); MCV 101.2 fL (80.0-100.0); Mean Platelet Volume 7.8; Monocytes # (A) 0.5 k/uL (0-1.0); Monocytes % (A) 6 %; Neutrophils # (A) 7.1 k/uL (1.3-7.7); Neutrophils % (A) 76 %; Platelet Count 186 k/uL (150-450); RBC 3.27 m/uL (3.80-5.40); RDW 13.3 % (11.5-15.5); WBC 9.3 k/uL (3.8-10.6)
[2021-10-18 14:20] LABS: Partial Thromboplastin Time 24.3 sec (22.0-30.0); Prothrombin Time 10.9 sec (9.0-12.0)
[2021-10-18 14:36] LABS: Ionized Calcium 4.9 mg/dL (4.5-5.3)
[2021-10-18 14:43] LABS: Albumin 2.8 g/dL (3.5-5.0); Calcium 7.9 mg/dL (8.4-10.2); Magnesium 1.8 mg/dL (1.6-2.3); Potassium 4.2 mmol/L (3.5-5.1); Total Bilirubin 0.3 mg/dL (0.2-1.3); Total Protein 5.1 g/dL (6.3-8.2)
--- NOTE | 2021-10-18 14:56 | XR ---
EXAMINATION TYPE: XR chest 1V portable DATE OF EXAM: 10/18/2021 COMPARISON: NONE HISTORY: Post Operative Cardiac Surgery TECHNIQUE: Single frontal view of the chest is obtained. FINDINGS: There is no focal air space opacity, pleural effusion, or pneumothorax seen. The cardiac silhouette size is within normal limits. The osseous structures are intact. Heart is enlarged and t here are atherosclerotic changes of the aorta. Diffuse osteopenia with arthropathy of the shoulders. IMPRESSION: Cardiomegaly correlate for COPD
--- NOTE | 2021-10-18 15:16 | P.CNPUL ---
History of Present Illness Consult date: 10/18/21 Requesting physician: Nirav Villegas Reason for consult: other Chief complaint: Transcatheter aortic valve replacement. History of present illness: Pulmonary/critical care consultation dated 10/18/2021. 71-year-old female who was seen in the intensive care unit, room 257. The patient is postop day #0, status post transcatheter aortic valve replacement, for symptomatic aortic stenosis. The patient has a history of hypertension, hyperlipidemia, COPD, GERD, anxiety, osteoarthritis, and memory impairment. The patient is resting comfortably in the intensive care unit. She's on 4 L nasal c annula. She's not receiving any IV fluids. She is receiving nitroglycerin at 50 mcg/m. Patient has no complaints. She is laying flat in bed, and not manifesting any signs or symptoms of respiratory distress. White count 9.3, hemoglobin 10.8, hematocrit 33.1, with a normal platelet count. Sodium 137, potassium 4.2, chlorides 109, CO2 22, BUN 17, and creatinine 0.91. Albumin is 2.8. Chest x-rays consistent with cardiomegaly, and changes of COPD. Review of Systems REVIEW OF SYSTEMS: CONSTITUTIONAL: [Negative.] NEUROLOGIC: [ Negative.] HEENT: [ Negative.] CARDIAC: [Negative.] PULMONARY: Dyspnea on exertion. GI: [Negative.] : [Negative.] RHEUMATOLOGIC: [ Negative.] IMMUNOLOGIC: [ Negative.] ENDOCRINE: [Negative. ] DERMATOLOGIC: [Negative.] Past Medical History Past Medical History: COPD, Eye Disorder, GERD/Reflux, Hyperlipidemia, Hypertension, Memory Impairment, Musculoskeletal Disorder, Osteoarthritis (OA), Pneumonia Additional Past Medical History / Comment(s): HEART MURMUR. "leaky aortic valve", BENIGN CYST ON KIDNEY. OSTEOPOROSIS. Bilateral Cataracts. "Left retinal stroke." WEARS ARM BRACES BILATERALLY @ HS, has nerve damage to arms and wrists. "Have a bad back." Hx Pneumonia and Bronchitis, nothing recent. recent echo, SOB w/exertion History of Any Multi-Drug Resistant Organisms: None Reported Past Surgical History: Heart Catheterization, Orthopedic Surgery Additional Past Surgical History / Comment(s): "DRIED BLOOD CLOTS BILATERAL LEGS REMOVED." EXCISION RIGHT GANGLION CYST. BILATERAL FOOT SURGERY, HAS PIN RIGHT FOOT. Past Anesthesia/Blood Transfusion Reactions: No Reported Reaction Additional Past Anesthesia/Blood Transfusion Reaction / Comment(s): CLAUSTROPHOBIC. Smoking Status: Former smoker - Past Family History Mother Family Medical History: Deep Vein Thrombosis (DVT) Father Family Medical History: Myocardial Infarction (CA) Medications and Allergies Home Medications Medication Instructions Recorded Confirmed Type Albuterol Inhaler [Ventolin Hfa 2 puff INHALATION Q4-6H PRN 07/30/17 10/18/21 History Inhaler] Aspirin [Adult Low Dose Aspirin EC] 162 mg PO HS 07/30/17 10/18/21 History Atorvastatin [Lipitor] 80 mg PO HS 07/30/17 10/18/21 History Cholecalciferol (Vitamin D3) 2,000 unit PO HS 07/30/17 10/18/21 History [Vitamin D3] Cyanocobalamin (Vitamin B-12) 1,000 mcg PO DAILY 07/30/17 10/18/21 History [Vitamin B-12] Lisinopril-Hctz 20-12.5 mg 1 tab PO QAM 07/30/17 10/18/21 History [Zestoretic 20-12.5] atenoloL [Tenormin] 12.5 mg PO DAILY 07/30/17 10/18/21 History Baclofen [Lioresal] 10 mg PO BID 09/19/21 10/18/21 History Famotidine [Pepcid] 20 mg PO DAILY 09/19/21 10/18/21 History Fluticasone/Umeclidin/Vilanter 1 inhalation INHALATION DAILY PRN 09/19/21 10/18/21 History [Trelegy Ellipta 100-62.5-25] Gabapentin [Neurontin] 300 mg PO BID 09/19/21 10/18/21 History Allergies Allergy/AdvReac Type Severity Reaction Status Date / Time esomeprazole [From Nexium] Allergy Rash/Hives Verified 10/17/21 10:52 hydrocodone [From Vicoprofen] Allergy Swelling Verified 10/17/21 10:52 TONGUE, VOMITING ibuprofen [From Vicoprofen] Allergy Swelling Verified 10/17/21 10:52 TONGUE, VOMITING Physical Exam Osteopathic Statement: *. No significant issues noted on an osteopathic structural exam other than those noted in the History and Physical/Consult. Vitals: Vital Signs Temp Pulse Resp BP Pulse Ox 10/18/21 14:40 58 L 11 L 107/60 99 10/18/21 14:30 62 11 L 121/86 91 L 10/18/21 14:20 61 6 L 123/65 98 10/18/21 14:10 60 16 133/68 83 L 10/18/21 14:00 62 11 L 98 10/18/21 13:50 98.2 F 67 5 L 124/63 97 10/18/21 13:40 70 9 L 99 10/18/21 13:30 97 10/18/21 13:29 93 L Intake and Output 10/18/21 10/18/21 10/18/21 06:59 14:59 22:59 Intake Total 1400 Balance 1400 Intake: IV 1400 ABP, PAP, CO, CI - Last 8 Hours Arterial Blood Pressure 112/38 Arterial Blood Pressure 104/38 Arterial Blood Pressure 109/34 Arterial Blood Pressure 97/26 Arterial Blood Pressure 112/37 Arterial Blood Pressure 114/39 Arterial Blood Pressure 121/35 No acute distress, oriented 3. Currently on nasal O2 at 4 L. HEENT examination is grossly unremarkable. Neck supple. Full range of motion. No adenopathy thyromegaly or neck vein distention. Cardiovascular examination reveals regular rhythm rate. S1-S2 normal. No S3 or S4. No discernible murmur noted. Heart rate 58 bpm. Lungs reveal clear breath sounds. Breath sounds are equal bilaterally. No adventitious lung sounds including wheezes rhonchi or crackles. Saturations are 99%. Abdomen soft bowel sounds are heard. No masses or tenderness. Extremities are intact. No cyanosis clubbing or edema. Skin is without rash or lesion. Neurologic examination is brief but nonfocal. Results - Laboratory Findings CBC and BMP: 10/18/21 13:41 10/18/21 13:41 PT/INR, D-dimer PT 10.9 sec (9.0-12.0) 10/18/21 13:41 INR 1.0 (<1.2) 10/18/21 13:41 Abnormal lab findings: Abnormal Labs 10/18/21 10/18/21 10/18/21 07:44 13:37 13:41 RBC 3.27 L Hgb 10.8 L Hct 33.1 L MCV 101.2 H Chloride Glucose POC Glucose (mg/dL) 139 H 145 H Calcium Total Protein Albumin 10/18/21 13:41 RBC Hgb Hct MCV Chloride 109 H Glucose 134 H POC Glucose (mg/dL) Calcium 7.9 L Total Protein 5.1 L Albumin 2.8 L - Diagnostic Findings Chest x-ray: image reviewed Assessment and Plan Assessment: Postop day #0, status post transcatheter aortic valve replacement, for symptomatic aortic stenosis. History of hyperlipidemia. History of hypertension. History of gastroesophageal reflux disease. History of anxiety. History of osteoarthritis. History of memory impairment. Recent tobacco cessation. Plan: Plan dated 10/18/2021. The patient appears relatively stable. We will continue to follow the patient and make recommendations where appropriate. The patient's currently on 4 L nasal cannula. The patient is receiving IV nitroglycerin at 50 mcg/m. No additional recommendations are made. Prognosis is guarded. Time with Patient: Greater than 30
[2021-10-18 15:46] VITALS: BMI 33.5
--- NOTE | 2021-10-18 16:27 | P.PCN ---
Date of Procedure: 10/18/21 Operative Findings: TRANSCATHETER AORITC VALVE REPLACEMENT OPERATIVE REPORT PROCEDURE PERFORMED: 1. Percutaneous Aortic Valve Implantation using a 26 mm Core-Valve Evolut-Pro Plus. 2. Transesophageal echocardiography (performed by anesthesia) 3. Ultrasound guided access and repair of right femoral artery access site by Perclose closure device. 4. Placement of temporary pacemaker wire. 5. Aortic root angiography 6. Balloon angioplasty of the right common iliac artery, right external iliac artery, right common femoral artery, and right SFA INDICATIONS: 1. 71-year-old year-old with a history of severe symptomatic aortic valve stenosis. 2. Patient was experiencing shortness of breath with exertion consistent was NYHA class II and sometimes class III PERFORMING PHYSICIANS: 1. Dank Cornejo MD Interventional Cardiology. 2. Brendan Bob DO, interventional Cardiology 3. Nirav Villegas MD, Cardiothoracic Surgeon. 4. Grace Giles MD Proctoring Interventional cardiology SEDATION: General anesthesia provided by anesthesia, see separate note APPROACH: Right and left femoral artery via percutaneous approach PROCEDURE DESCRIPTION: The patient was discussed at valve clinic with multidisciplinary approach with cardiothoracic surgeon as well as dishwasher preparer and thought better treated with TAVR. Risks, benefits, and alternatives of the procedure had been explained to the patient who understood the risks and agreed to proceed. After consents were obtained, patient was brought to the transcatheter aortic valve implantation room in the cardiac director labor standards and general anesthesia was provided by the kellie hesiologist (see separate report). Once full body sterile prep was performed, right subclavian venous access was obtained and a temporary pacemaker was screwed in, performed by cardiothoracic surgery. Pacing threshholds were checked and deemed appropriate. Next the left femoral artery waw accessed using a modified Seldinger technique, ultrasound guidance and micropuncture technique. A 5 [place] Rabi sheath was placed in the left femoral artery. Next, a 5-[place] pigtail catheter was advanced into the aorta and positioned in the aortic root, aortic root angiography was performed to determine optimal deployment angle. The right femoral artery was accessed using modified Seldinger technique, micropuncture technique and under direct ultrasound guidance. Femoral angiogram was done showing access in the common femoral artery and a 6Fr sheath was placed. Next preclose technique was performed using one Perclose. Next a 0.035 Lunderquist wire was placed in the Aorta via a pigtail catheter. Over that the arteriotomy was serially dilated and a 14 Fr Davis sheath was placed. Next a 6F- AL1 catheter was advanced over a wire to the aortic root. A straight wire was advanced through the catheter and used to cross the severely stenotic valve. The AL1 was then exchanged for a 6Fr pigtail catheter and pressure measurements were obtained. The 0.035 Lunderquist wire was then positioned in the apex. Next and attempting advancing 26 mm core valve was unsuccessful because the valve was not crossing the segment at the right external and right common iliac artery. We did dilate elevation of the lesion at the right common and right external iliac artery using 6 mm balloon and in spite of that attempting advancing the core valve was unsuccessful. At that point we decided to upgrade or sheath from 14- Qatari sheath to 18-Qatari sheath. With that we were able to advance the sheath under fluoroscopy guidance all the way to the aorta over a stiff wire. Next a 26 mm Corevalve Evolut-Pro Plus was advanced. The valve was then positioned across the aortic valve and confirmed with aortic root angiography. [The valve was initially partially deployed however needed repositioning and therefore was recaptured.] The valve was then deployed in proper position using slow deployment and with rapid pacing in conjuncture with aortic root angiography and DOOM. The delivery system was withdrawn back into the arch and an aortic root injection in conjunction with DOMO demonstrated a satisfactory result. There was trivial para valvular leak. There was no evidence of any other significant abnormalities. Because we were concerned about hemostasis at the right groin we did advance a balloon from the left groin to the right groin. The balloon was positioned at the right external iliac artery. Deployment one Perclose was not enough and attempting deploying an 8-[place] Angio-Seal was also not enough. For that reason we inflated the balloon in the right external and right common femoral artery for a total of 30 minutes intermittently. The following angiogram showed what it seems to be possible thrombus burden involving the right common femoral artery and right SFA. We did balloon angioplasty on both and were able to restore good flow. At that point final angiogram was performed and showed a good angiographic results and the procedure was completed. After that we did manual pullback on the sheath which was 6-[place] sheath in the left common femoral artery. COMPLICATIONS: None CONCLUSION: 1. Implantaion of 26 Core-Valve Evolut-Pro Plus transcatheter aortic valve via right femoral approach under DOMO and fluoro guidance with minor carmen-valvular aortic regurgitation. 2. Placement of temporary pacemaker wire RECOMMENDATIONS: The patient will be monitored in the ICU for hemodynamic and electrical stability.
[2021-10-18] MEDS: BACLOFEN 10 MG TAB PO SCH (20:12)
[2021-10-18] MEDS: GABAPENTIN 300 MG CAP PO SCH (20:12)
[2021-10-18] MEDS ORDERED: CHOLECALCIFEROL 25 MCG (1000 IU) TABLET PO SCH (21:00)
[2021-10-18] MEDS ORDERED: ATORVASTATIN 80 MG TAB PO SCH (21:00)
[2021-10-18] MEDS ORDERED: ASPIRIN 81 MG PO SCH (21:00)
[2021-10-18] MEDS: HEPARIN SODIUM,PORCINE/PF 5,000 UNIT/0.5 ML SYRINGE SQ SCH (23:41)
[2021-10-19] MEDS ORDERED: MORPHINE SULFATE 2 MG/ML SYRINGE IVP PRN ×2 (03:00→04:00)
--- NOTE | 2021-10-19 08:21 | XR ---
EXAMINATION TYPE: XR chest 1V portable DATE OF EXAM: 10/19/2021 COMPARISON: 10/18/2021 HISTORY: Postop TECHNIQUE: Single frontal view of the chest is obtained. FINDINGS: Atherosclerotic change aorta. Heart size normal. Coarsened interstitium with bilateral ple ural thickening. Cannot exclude tiny effusion. Hyperinflation suggests COPD. Cardiac lead noted. IMPRESSION: Cannot exclude tiny effusions. Coarsened interstitium can be associated with chronic int erstitial lung disease. Correlate clinically to exclude interstitial pneumonitis or mild venous conge stion
[2021-10-19 08:38] LABS: Basophils # (A) 0.1 k/uL (0-0.2); Basophils % (A) 1 %; Eosinophils # (A) 0.2 k/uL (0-0.7); Eosinophils % (A) 1 %; HCT 32.1 % (34.0-46.0); HGB 10.2 gm/dL (11.4-16.0); Hypochromasia Slight; Lymphocytes # (A) 1.7 k/uL (1.0-4.8); Lymphocytes % (A) 16 %; MCH 32.2 pg (25.0-35.0); MCHC 31.8 g/dL (31.0-37.0); MCV 101.3 fL (80.0-100.0); Macrocytosis Slight; Mean Platelet Volume 7.6; Monocytes # (A) 0.7 k/uL (0-1.0); Monocytes % (A) 7 %; Neutrophils # (A) 7.6 k/uL (1.3-7.7); Neutrophils % (A) 73 %; Platelet Count 168 k/uL (150-450); RBC 3.17 m/uL (3.80-5.40); RDW 13.5 % (11.5-15.5); WBC 10.4 k/uL (3.8-10.6)
[2021-10-19 08:44] LABS: Ionized Calcium 4.6 mg/dL (4.5-5.3)
[2021-10-19] MEDS: GABAPENTIN 300 MG CAP PO SCH (08:55)
[2021-10-19] MEDS: HEPARIN SODIUM,PORCINE/PF 5,000 UNIT/0.5 ML SYRINGE SQ SCH (08:56)
[2021-10-19] MEDS: BACLOFEN 10 MG TAB PO SCH (08:56)
[2021-10-19] MEDS ORDERED: LISINOPRIL-HCTZ 20-12.5 MG 1 EACH TAB PO SCH (09:00)
[2021-10-19] MEDS ORDERED: CYANOCOBALAMIN 500 MCG TAB PO SCH (09:00)
[2021-10-19] MEDS ORDERED: CLOPIDOGREL 75 MG TAB PO SCH (09:00)
[2021-10-19] MEDS ORDERED: MAGNESIUM HYDROXIDE 2,400 MG/10 ML CUP PO PRN (09:00)
[2021-10-19] MEDS ORDERED: FAMOTIDINE 20 MG TAB PO SCH (09:00)
[2021-10-19] MEDS ORDERED: bisacodyL 10 MG SUPP RECTAL PRN (09:00)
[2021-10-19 09:04] LABS: Albumin 3.1 g/dL (3.5-5.0); Calcium 8.3 mg/dL (8.4-10.2); Magnesium 1.9 mg/dL (1.6-2.3); Potassium 4.3 mmol/L (3.5-5.1); Total Bilirubin 0.4 mg/dL (0.2-1.3); Total Protein 5.5 g/dL (6.3-8.2)
--- NOTE | 2021-10-19 09:11 | P.PN ---
Subjective Progress Note Date: 10/19/21 Principal diagnosis: Aortic Stenosis. Pulmonary/critical care consultation dated 10/18/2021. 71-year-old female who was seen in the intensive care unit, room 257. The patient is postop day #0, status post transcatheter aortic valve replacement, for symptomatic aortic stenosis. The patient has a history of hypertension, hyperlipidemia, COPD, GERD, anxiety, osteoarthritis, and memory impairment. The patient is resting comfortably in the intensive care unit. She's on 4 L nasal cannula. She's not receiving any IV fluids. She is receiving nitroglycerin at 50 mcg/m. Patient has no complaints. She is laying flat in bed, and not manifesting any signs or symptoms of respiratory distress. White count 9.3, hemoglobin 10.8, hematocrit 33.1, with a normal platelet count. Sodium 137, potassium 4.2, chlorides 109, CO2 22, BUN 17, and creatinine 0.91. Albumin is 2.8. Chest x-rays consistent with cardiomegaly, and changes of COPD. Progress note dated 10/19/2021. 71-year-old female seen again in room 257. She is postop day #1 status post transcatheter aortic valve replacement for aortic stenosis. The patient's on room air. She's not receiving IV fluids. She will hopefully be discharged home today. She has no complaints today. She had an uneventful night. Labs today include a white count 10.4, hemoglobin 10.2, hematocrit 32.1, a normal platelet count. Electrolytes are relatively normal. Glucose was 152. Calcium 8.3. Albumin 3.1. Chest x-ray shows some very mild interstitial edema and very tiny pleural effusions. Objective - Vital Signs Vital signs: Vital Signs Temp 98.8 F 10/19/21 04:00 Pulse 71 10/19/21 07:00 Resp 10 L 10/19/21 07:00 BP 92/61 10/19/21 07:00 Pulse Ox 96 10/19/21 07:00 FiO2 Intake & Output 10/18/21 10/19/21 10/19/21 18:59 06:59 18:59 Intake Total 1600 600 50 Output Total 800 830 50 Balance 800 -230 0 Weight 78.018 kg 82.4 kg Intake: IV 1600 600 50 Lactated Ringers 1,000 ml 200 600 50 @ 50 mls/hr IV .[facility] Rx#:[id number] Output: Urine 800 830 50 Other: Voiding Method Indwelling Catheter Indwelling Catheter ABP, PAP, CO, CI - Last Documented Arterial Blood Pressure 108/39 - Exam No acute distress, oriented 3. Currently on room air. HEENT examination is grossly unremarkable. Neck supple. Full range of motion. No adenopathy thyromegaly or neck vein distention. Cardiovascular examination reveals regular rhythm rate. S1-S2 normal. No S3 or S4. No discernible murmur noted. Heart rate 71 bpm. Lungs reveal clear breath sounds. Breath sounds are equal bilaterally. No adventitious lung sounds including wheezes rhonchi or crackles. Saturations are 96 %. Abdomen soft bowel sounds are heard. No masses or tenderness. Extremities are intact. No cyanosis clubbing or edema. Skin is without rash or lesion. Neurologic examination is brief but nonfocal. - Labs CBC & Chem 7: 10/19/21 08:00 10/19/21 08:00 Labs: Abnormal Lab Results - Last 24 Hours (Table) 10/18/21 10/18/21 10/18/21 Range/Units 13:37 13:41 13:41 RBC 3.27 L (3.80-5.40) m/uL Hgb 10.8 L (11.4-16.0) gm/dL Hct 33.1 L (34.0-46.0) % MCV 101.2 H (80.0-100.0) fL Sodium (137-145) mmol/L Chloride 109 H (98-107) mmol/L Glucose 134 H (74-99) mg/dL POC Glucose (mg/dL) 145 H (70-110) mg/dL Calcium 7.9 L (8.4-10.2) mg/dL Total Protein 5.1 L (6.3-8.2) g/dL Albumin 2.8 L (3.5-5.0) g/dL 10/19/21 10/19/21 Range/Units 08:00 08:00 RBC 3.17 L (3.80-5.40) m/uL Hgb 10.2 L (11.4-16.0) gm/dL Hct 32.1 L (34.0-46.0) % MCV 101.3 H (80.0-100.0) fL Sodium 136 L (137-145) mmol/L Chloride (98-107) mmol/L Glucose 152 H (74-99) mg/dL POC Glucose (mg/dL) (70-110) mg/dL Calcium 8.3 L (8.4-10.2) mg/dL Total Protein 5.5 L (6.3-8.2) g/dL Albumin 3.1 L (3.5-5.0) g/dL Assessment and Plan Assessment: Postop day #1, status post transcatheter aortic valve replacement, for symptomatic aortic stenosis. History of hyperlipidemia. History of hypertension. History of gastroesophageal reflux disease. History of anxiety. History of osteoarthritis. History of memory impairment. Recent tobacco cessation. Plan: Plan dated 10/18/2021. The patient appears relatively stable. We will continue to follow the patient and make recommendations where appropriate. The patient's currently on 4 L nasal cannula. The patient is receiving IV nitroglycerin at 50 mcg/m. No additional recommendations are made. Prognosis is guarded. Plan dated 10/19/2021. The patient will likely be discharged home today. The patient's doing much better. The patient had an uneventful night. Labs, x-rays, and medications are reviewed. The patient's currently on room air. IV nitroglycerin has been weaned off. Clinically, the patient is stable. No additional recommendations are made. Time with Patient: Less than 30
--- NOTE | 2021-10-19 09:21 | US ---
EXAMINATION TYPE: US lower ext pseudo artery RT DATE OF EXAM: 10/19/2021 COMPARISON: NONE CLINICAL HISTORY: rule out pseudoaneurysm. rt groin pain recent cath. EXAM PERFORMED: Grayscale and color Doppler duplex imaging performed of the groin, post cardiac vicente ter to assess for pseudoaneurysm. SIDE PERFORMED: right Color and Waveform Doppler performed to assess for the presence of pseudoaneurysm; Is there ultrasound evidence of a pseudoaneurysm: no Is there evidence of AV shunting: no Is there a fluid collection present: no IMPRESSION: No diagnostic evidence of pseudoaneurysm.
[2021-10-19 09:56] VITALS: TEMP 98.6
--- NOTE | 2021-10-19 10:01 | P.DS ---
Providers Date of admission: 10/18/21 07:13 Expected date of discharge: 10/19/21 Attending physician: Dank Cornejo Consults: 10/18/21 13:38 Consult Physician Routine Consulting Provider: Les Weeks Consult Reason/Comments: Director Child Consult: post cardiac surgery Do you want consulting provider notified?: Yes Consult Physician Routine Consulting Provider: Nirav Villegas Consult Reason/Comments: Strategic Account Executive Consult: post cardiac surgery Do you want consulting provider notified?: Yes Primary care physician: Dante Mustafa Hospital Course: MEDICAL HISTORY: 1. Calcified aortic valve with severe symptomatic aortic valve stenosis 2. Shortness of breath with exertion consistent with NYHA class II and sometimes class III 3. Coronary artery disease 4. Hypertension 5. Hyperlipidemia 6. COPD 7. Questionable left retinal stroke 8. Previous tobacco dependence 9. Bilateral internal carotid artery stenosis 50-79% PROCEDURE: 1. Percutaneous aortic valve implantation using a 26 mm Core Valve Evolute-Pro Plus 2. Transesophageal echocardiography performed by anesthesia 3. Ultrasound-guided access and repair of right femoral artery access site by Perclose closure device 4. Placement of temporary pacemaker wire 5. Aortic root angiography 6. Balloon angioplasty of the right common iliac artery, right external iliac artery, right common femoral artery, and right SFA HISTORY OF PRESENT ILLNESS: This is a 71-year-old female who follows on an outpatient basis with Dr. Mustafa for primary care and Dr. Jarquin for cardiology. She has a known history of severe aortic stenosis and has been symptomatic with increased exertional dyspnea as well as dizziness and fatigue. She had been referred to structural heart clinic for evaluation for transcatheter aortic valve replacement after heart catheterization and transesophageal echocardiogram were completed. Echocardiography demonstrated normal systolic function with EF 55-60%, aortic valve area 0.49 cm with a peak/mean gradient 64/35 mmHg and maximum velocity 4.01 m/s. Heart catheterization showed ostial circumflex with 30-40% stenosis, and proximal to mid RCA within 20-30% stenosis. After workup was completed STS risk score was calculated along with incremental risk and the patient was felt to be a good candidate for transcatheter aortic valve replacement. The usual course of TAVR was discussed in detail the patient, risks and benefits were reviewed, shared decision making between cardiology, surgery, and the patient/family took place, and the patient consented to proceed with the procedure. HOSPITAL COURSE: The patient was brought to the hospital on 10/18/2021, was taken to the extended stay area, prepared in the usual fashion, and subsequently taken to the cardiac catheterization laboratory where Dr. Cornejo and Dr. Villegas completed TAVR procedure under general anesthesia with fluoroscopy and DOMO. The valve was deployed under rapid ventricular pacing and proceeded without event. At the end of the procedure there was no significant gradient, hemodynamics were felt to be acceptable, and there was trace perivalvular leak. Upon completion of the procedure the patient was extubated and was transferred to the cardiovascular intensive care unit where she was recovered and monitored hemodynamically. Her oxygen was titrated down, she was tolerating oral diet, her pain was controlled, follow-up TTE demonstrated functioning bioprosthetic valve, preserved left ventricular systolic function and no perivalvular leak, and she was ready to be discharged to home on postoperative day #1. She received written and verbal instruction regarding her medications, activity restrictions, signs and symptoms requiring physician notification, and follow-up appointments. Patient Condition at Discharge: Stable Plan - Discharge Summary Discharge Rx Participant: No New Discharge Prescriptions: New RX: Clopidogrel [Plavix] 75 mg PO DAILY #30 tab RX: Acetaminophen Tab [Tylenol] 650 mg PO Q4HR PRN tab PRN Reason: Fever And/ Or Mild Pain (1-3) Continue RX: Cholecalciferol (Vitamin D3) [Vitamin D3] 2,000 unit PO HS RX: Aspirin [Adult Low Dose Aspirin EC] 162 mg PO HS RX: Lisinopril-Hctz 20-12.5 mg [Zestoretic 20-12.5] 1 tab PO QAM RX: Atorvastatin [Lipitor] 80 mg PO HS RX: atenoloL [Tenormin] 12.5 mg PO DAILY RX: Cyanocobalamin (Vitamin B-12) [Vitamin B-12] 1,000 mcg PO DAILY RX: Albuterol Inhaler [Ventolin Hfa Inhaler] 2 puff INHALATION Q4-6H PRN PRN Reason: Shortness Of Breath RX: Famotidine [Pepcid] 20 mg PO DAILY RX: Fluticasone/Umeclidin/Vilanter [Trelegy Ellipta 100-62.5-25] 1 inhalation INHALATION DAILY PRN PRN Reason: Shortness Of Breath RX: Gabapentin [Neurontin] 300 mg PO BID RX: Baclofen [Lioresal] 10 mg PO BID Discharge Medication List RX: Albuterol Inhaler [Ventolin Hfa Inhaler] 2 puff INHALATION Q4-6H PRN 07/30/17 [History] RX: Aspirin [Adult Low Dose Aspirin EC] 162 mg PO HS 07/30/17 [History] RX: Atorvastatin [Lipitor] 80 mg PO HS 07/30/17 [History] RX: Cholecalciferol (Vitamin D3) [Vitamin D3] 2,000 unit PO HS 07/30/17 [History] RX: Cyanocobalamin (Vitamin B-12) [Vitamin B-12] 1,000 mcg PO DAILY 07/30/17 [History] RX: Lisinopril-Hctz 20-12.5 mg [Zestoretic 20-12.5] 1 tab PO QAM 07/30/17 [History] RX: atenoloL [Tenormin] 12.5 mg PO DAILY 07/30/17 [History] RX: Baclofen [Lioresal] 10 mg PO BID 09/19/21 [History] RX: Famotidine [Pepcid] 20 mg PO DAILY 09/19/21 [History] RX: Fluticasone/Umeclidin/Vilanter [Trelegy Ellipta 100-62.5-25] 1 inhalation INHALATION DAILY PRN 09/19/21 [History] RX: Gabapentin [Neurontin] 300 mg PO BID 09/19/21 [History] RX: Acetaminophen Tab [Tylenol] 650 mg PO Q4HR PRN tab 10/19/21 [Rx] RX: Clopidogrel [Plavix] 75 mg PO DAILY #30 tab 10/19/21 [Rx] Follow up Appointment(s)/Referral(s): Dante Mustafa MD [Primary Care Provider] - As Needed Clinic,Structural Heart [NON-STAFF] - 12/18/21 12:00 pm (Please come to the valve clinic after your lab work has been drawn at the hospital) Bereket Jarquin MD [STAFF PHYSICIAN] - 10/25/21 5:15 pm (At the [address] office. Dr. Blood will arrange for your 30 day post TAVR echo to be completed between 11/08/2021-01/01/2022) Ambulatory/Diagnostic Orders: Basic Metabolic Panel [LAB.AMB] Time Frame: 12/18/21, Facility: [facility], Location: [facility] Complete Blood Count w/diff [LAB.AMB] Time Frame: 12/18/21, Facility: [facility], Location: [facility] Activity/Diet/Wound Care/Special Instructions: DISCHARGE INSTRUCTIONS: 1. No driving for 1 week, or until physician gives their ok. 2. No lifting, pushing, or pulling more than 5-10 pounds for 1 week. 3. Hold both groins when you cough or sneeze for the next 2 weeks. Bruising is common, but report increased swelling, pain or fever >101F 4. Shower daily. No pool, hot tub, or bathtub for 1 week 5. No powders, lotions, ointments on incisions. 6. No straining, including for bowel movements. Use stool softner if necessary 7. Stairs are not an issue. Go slowly, using handrail and take 1 step at a time. Ambulate several times daily 8. Continue pain control per as needed orders. 9. Take only the medications listed on your discharge form 10. Eat low salt (limited to 2 grams or 2000 milligrams) daily, avoid adding salt, avoid canned/processed foods 11. Take your weight daily in the morning and record, bring with you to your follow up appointments 12. Keep all follow up appointments. You will need a valve clinic appointment at 30 days and 1 year post procedure for follow up 13. You have been referred to and are expected to begin Cardiac Rehab in approximately 4 weeks. 14. You will need antibiotics prior to any dental work, including cleanings, and any surgeries to prevent Endocarditis (bacterial infection in your heart) For any questions or concerns please call your valve coordinators: Alanis or Veto @ Discharge Disposition: HOME SELF-CARE
[2021-10-19 12:35] VITALS: BP 123/42; PULSE 72; RESP 14
--- NOTE | 2021-10-19 13:53 | CA ---
Transthoracic Echo Report Name: Funmliayo Obrien Age: 71 Gender: F : 1950 Exam Date: 10/19/2021 08:11 Exam Location: [facility] Ht (in): 60 Wt (lb): 172 Ordering Physician: Alanis Palomares Attending/Referring Phys: [id number], Marielle Retail [employer] Barbara Gutierrez, RDTYRONE Procedure CPT: Indications: post TAVR Cardiac Hx: Technical Quality: Fair Contrast 1: Total Dose (mL): Contrast 2: Total Dose (mL): MEASUREMENTS (Male / Female) Normal Values 2D ECHO LV Diastolic Diameter PLAX 5.3 cm 4.2 - 5.9 / 3.9 - 5.3 cm LV Systolic Diameter PLAX 2.9 cm IVS Diastolic Thickness 1.2 cm 0.6 - 1.0 / 0.6 - 0.9 cm LVPW Diastolic Thickness 1.1 cm 0.6 - 1.0 / 0.6 - 0.9 cm LV Relative Wall Thickness 0.4 RV Internal Dim ED PLAX 3.0 cm LA Systolic Diameter LX 3.9 cm 3.0 - 4.0 / 2.7 - 3.8 cm LA Volume 42.7 cm??? 18 - 58 / 22 - 52 cm??? M-MODE Aortic Root Diameter MM 2.5 cm MV E Point Septal Separation 1.9 cm DOPPLER AV Peak Velocity 238.4 cm/s AV Peak Gradient 22.7 mmHg AV Mean Velocity 142.6 cm/s AV Mean Gradient 10.1 mmHg AV Velocity Time Integral 42.8 cm LVOT Peak Velocity 161.9 cm/s LVOT Peak Gradient 10.5 mmHg MV Area PHT 4.5 cm??? Mitral E Point Velocity 119.2 cm/s Mitral A Point Velocity 112.2 cm/s Mitral E to A Ratio 1.1 MV Deceleration Time 170.1 ms MV E' Velocity 7.1 cm/s Mitral E to MV E' Ratio 16.9 TR Peak Velocity 293.3 cm/s TR Peak Gradient 34.4 mmHg Right Ventricular Systolic Press 39.4 mmHg FINDINGS Left Ventricle Left ventricular ejection fraction is estimated at 55-60 %. Mildly increased septal wall thickness. Mildly increased posterior wall thickness. Left ventricular cavity size normal. Right Ventricle Normal right ventricular size and function. Mild pulmonary hypertension. Right Atrium Normal right atrial size. Left Atrium Normal left atrial size. No evidence for an atrial septal defect. Mitral Valve Structurally normal mitral valve. No mitral stenosis, regurgitation or prolapse. Aortic Valve No central aortic regurgitation. No paravalvular aortic regurgitation. Normal bioprostetic AOV with max gradient of 23 mmHg and mean gradient of 10 mmHg Tricuspid Valve Mild tricuspid regurgitation. Pulmonic Valve Trace pulmonic regurgitation. Pericardium Normal pericardium. No pericardial effusion. Aorta Normal size aortic root and proximal ascending aorta. CONCLUSIONS LVH with preserved systolic function Bioprosthetic aortic valve with a peak gradient of around 20 mmHg and mean gradient of 10 mmHg, normal function Previewed by: Dr. Bereket Jarquin MD (Electronically Signed) Final Date: 19 October 2021 13:52
[2021-10-19] MEDS ORDERED: SENNOSIDES-DOCUSATE SODIUM 1 EACH TAB PO SCH (21:00)
== END 2021-10-19 12:56 | disposition home or self-care (01) | DRG 267 ==
LOC: 2ORMAIN 07:13 → 2SICU 12:25
PROVIDERS: ADMIT Internal Medicine Interventional Cardiology; ATTEND Internal Medicine Interventional Cardiology
PROC: B24BZZ4 Ultrasonography of Heart with Aorta, Transesophageal (ICD-10-PCS; 2021-10-18)
PROC: 02RF38Z Replacement of Aortic Valve with Zooplastic Tissue, Percutaneous Approach (ICD-10-PCS; principal; 2021-10-18 10:30)
PROC: 047K3ZZ Dilation of Right Femoral Artery, Percutaneous Approach (ICD-10-PCS; 2021-10-18 10:30)
PROC: B3101ZZ Fluoroscopy of Thoracic Aorta using Low Osmolar Contrast (ICD-10-PCS; 2021-10-18 10:30)
PROC: 047C3ZZ Dilation of Right Common Iliac Artery, Percutaneous Approach (ICD-10-PCS; 2021-10-18 10:30)
PROC: 047H3ZZ Dilation of Right External Iliac Artery, Percutaneous Approach (ICD-10-PCS; 2021-10-18 10:30)
DX: I08.2 Rheumatic disorders of both aortic and tricuspid valves (principal); J44.9 Chronic obstructive pulmonary disease, unspecified; Z00.6 Encounter for examination for normal comparison and control in clinical research program; E66.9 Obesity, unspecified; Z20.822 Contact with and (suspected) exposure to COVID-19; I10 Essential (primary) hypertension; I25.10 Atherosclerotic heart disease of native coronary artery without angina pectoris; I65.23 Occlusion and stenosis of bilateral carotid arteries; E78.5 Hyperlipidemia, unspecified; K21.9 Gastro-esophageal reflux disease without esophagitis; H26.9 Unspecified cataract; M81.0 Age-related osteoporosis without current pathological fracture; M19.90 Unspecified osteoarthritis, unspecified site; Z68.35 Body mass index [BMI] 35.0-35.9, adult; Z79.82 Long term (current) use of aspirin; Z79.51 Long term (current) use of inhaled steroids; Z79.899 Other long term (current) drug therapy; Z86.59 Personal history of other mental and behavioral disorders; Z87.01 Personal history of pneumonia (recurrent); Z87.39 Personal history of other diseases of the musculoskeletal system and connective tissue; Z87.891 Personal history of nicotine dependence; Z86.73 Personal history of transient ischemic attack (TIA), and cerebral infarction without residual deficits; Z71.3 Dietary counseling and surveillance; Z71.6 Tobacco abuse counseling; Z98.890 Other specified postprocedural states; Z88.6 Allergy status to analgesic agent; Z88.5 Allergy status to narcotic agent; Z88.8 Allergy status to other drugs, medicaments and biological substances; Z82.49 Family history of ischemic heart disease and other diseases of the circulatory system; Z83.2 Family history of diseases of the blood and blood-forming organs and certain disorders involving the immune mechanism
CPT/HCPCS: 33210; 33361; 71045; 80053; 82330; 83735; 85025; 85610; 85730; 86850; 86900; 86901; 87635; 93306; 93312; 93320; 93325; 93975

== ENCOUNTER → 2021-11-28 | Outpatient (CLI) | payer MEDICARE, OTHER ==
[2021-11-29 01:00] LABS: Basophils # (A) 0.08 X 10*3/uL (0.00-0.10); Eosinophils # (A) 0.53 X 10*3/uL (0.04-0.35); Eosinophils % (A) 6.5 %; HCT 39.2 % (37.2-46.3); HGB 12.1 g/dL (12.0-15.0); Immature Grans, Automated 0.4 %; Lymphocytes % (A) 28.1 %; MCH 30.7 pg (27.0-32.0); MCHC 30.9 g/dL (32.0-37.0); MCV 99.5 fL (80.0-97.0); Mean Platelet Volume 10.3 fL (9.5-12.2); Monocytes # (A) 0.71 X 10*3/uL (0.20-1.00); Monocytes % (A) 8.7 %; NRBC Per 100 WBC 0 /100 WBCS (0.0-0.0); Neutrophils # (A) 4.53 X 10*3/uL (1.80-7.70); Neutrophils % (A) 55.3 %; Platelet Count 234 X 10*3/uL (140-440); RBC 3.94 X 10*6/uL (4.10-5.20); RDW 14.6 % (11.5-14.5); WBC 8.18 X 10*3/uL (4.50-10.00)
[2021-11-29 02:58] LABS: African American GFR (CKD) 74.6 (60.0-200.0); Anion Gap 14.6 mmol/L (10.00-18.00); BUN/Creat Ratio 21.56 Ratio (12.00-20.00); Blood Urea Nitrogen 19.4 mg/dL (9.0-27.0); Calcium 9.8 mg/dL (8.7-10.3); Carbon Dioxide 20.4 mmol/L (20.0-27.5); Non-African American GFR(CKD) 64.3 (60.0-200.0); Potassium 4.4 mmol/L (3.5-5.5)
== END | disposition home or self-care (01) ==
LOC: LABWHC1 15:08
PROVIDERS: ATTEND Family Medicine
DX: I35.1 Nonrheumatic aortic (valve) insufficiency (principal)
CPT/HCPCS: 36415; 80048; 85025

== ENCOUNTER → 2021-12-29 | Outpatient (CLI) | payer MEDICARE, OTHER ==
--- NOTE | 2021-12-29 15:12 | US ---
EXAMINATION TYPE: US kidneys/renal and bladder DATE OF EXAM: 12/29/2021 COMPARISON: NONE CLINICAL HISTORY: R31.1 HEMATURIA. Hematuria EXAM MEASUREMENTS: Right Kidney: 9.2 x 4.6 x 4.1 cm cm Left Kidney: 9.1 x 4.4 x 4.4 cm Right Kidney: Cystic area seen in the upper pole measuring approximately 2.0 x 2.1 x 2.2 cm Left Kidney: No hydronephrosis or masses seen Bladder: Appears wnl Bilateral Jets seen: No right jet seen Urinary bladder is sonolucent. The posterior wall is normal. IMPRESSION: 1. Upper pole right renal cyst.
== END | disposition home or self-care (01) ==
LOC: RADUSWWP 14:14
PROVIDERS: ATTEND Urology
DX: R31.1 Benign essential microscopic hematuria (principal); N28.1 Cyst of kidney, acquired
CPT/HCPCS: 76770

== ENCOUNTER → 2023-11-27 | Outpatient (CLI) | payer MEDICARE, OTHER ==
--- NOTE | 2023-11-27 16:11 | CTL ---
EXAMINATION TYPE: CT Low Dose Lung DATE OF EXAM: 11/27/2023 3:31 PM CLINICAL INDICATION:Female, 73 years old with history of Z12.2 Screening; Z87.891Former smoker; forme r tobacco user , history of tobacco use. COMPARISON: 10/05/2021 TECHNIQUE: Multiple axial non-contrast scans were obtained from approximately the lung apices through the upper abdomen. Coronal and sagittal reformatted images were obtained. Low dose technique was uti lized. CT DLP: 95.5 mGycm, Automated exposure control for dose reduction was used. CT Contrast: Contrast used: None Oral contrast used: None FINDINGS: ======== Lack of intravenous contrast and low dose technique limits the evaluation of the vascular and soft ti ssue structures. LUNGS: No evidence of pulmonary fibrosis. No evidence of focal consolidation, pneumothorax or pleural effusion. Centrilobular emphysema changes. Nodules: RUL: None. RML: None. RLL: 2 mm series 5 image 47. PETRONA: None. LLL: Intrafissural lymph node along the left major fissure. AIRWAY: Patent and unremarkable. HEART: Size within normal limits. Aortic valve replacement changes. Moderate coronary artery atherosc lerosis. MEDIASTINUM: No gross evidence of adenopathy. VASCULATURE: No aortic aneurysm. MUSCULOSKELETAL: Mild disc degeneration changes are present throughout the thoracolumbar spine. SOFT TISSUES/LYMPH NODES: Unremarkable. LOWER NECK: No significant findings. UPPER ABDOMEN: No significant findings. IMPRESSION: 1. No clinically significant pulmonary nodules. 2. Moderate emphysema. CT LUNG RAD AND CT CHEST RECOMMENDATION: Lung-Rad 2 Benign Appearance or Behavior: Continue annual sc reening with LDCT in 12 months. S Modifier (other clinically significant findings): None Recommend smoking cessation (if current smoker), or continuation of smoking cessation (if prior smoke r). Annual screening for lung cancer with low-dose computed tomography is recommended in adults ages 55 to 77 years who have a 30 pack-year smoking history and currently smoke or have quit within the pa st 15 years. Screening should be discontinued once a person has not smoked for 15 years or develops a health problem that substantially limits life expectancy or the ability or willingness to have curat stevo lung surgery. Lung rads 2021 [email or web address]
== END | disposition home or self-care (01) ==
LOC: RADCTMAIN 15:08
PROVIDERS: ATTEND Internal Medicine
DX: Z12.2 Encounter for screening for malignant neoplasm of respiratory organs (principal); Z87.891 Personal history of nicotine dependence; J43.9 Emphysema, unspecified
CPT/HCPCS: 71271

== ENCOUNTER → 2024-03-19 | Outpatient (CLI) | payer MEDICARE, OTHER ==
--- NOTE | 2024-03-19 15:41 | CT ---
EXAMINATION TYPE: CT angio neck CT DLP: 275.6 mGycm, Automated exposure control for dose reduction was used. DATE OF EXAM: 03/19/2024 2:55 PM COMPARISON: CT low-dose lung 11/27/2023, CT TAVR 10/05/2021, CT chest 04/08/2019. CLINICAL INDICATION:Female, 73 years old with history of I65.8; PHH, Bilateral carotid stenosis. TECHNIQUE: Axially acquired helical CT angiogram of the neck was obtained with contrast utilizing 75 cc of Isovue-370 administered intravenously. Axial images are supplemented with 3D reconstructions wh ich were post-processed at an independent workstation. NASCET criteria used. FINDINGS: CTA NECK: Right Carotid System: The common carotid artery and external carotid artery are patent. Moderate atherosclerotic plaque inv olving the carotid bifurcation proximal internal carotid artery. Mild stenosis at the origin of the r ight external carotid artery. Approximately 80% stenosis origin of the right internal carotid artery secondary to calcified plaque. The remaining portions of the internal carotid artery demonstrate norm al size without significant narrowing. Left Carotid System: The common carotid artery and external carotid artery are patent. Moderate atherosclerotic plaque inv olving the carotid bifurcation. Mild stenosis at the origin of the left external carotid artery. Appr oximately 60% stenosis at the origin of the left internal carotid artery. The remaining portions of t he internal carotid artery demonstrate normal size without significant narrowing. Vertebral arteries are patent. Mild stenosis at origin of the bilateral vertebral arteries secondary to calcified plaque. There is a three-vessel aortic arch. Atherosclerotic plaque of the aortic arch and its branches. The origins of the great vessels are patent. Mild stenosis at the origin of the left common carotid and l eft subclavian arteries secondary to calcified plaque. Centrilobular and paraseptal emphysematous changes. Biapical pleural-parenchymal scarring. Mild mucos al thickening in the right maxillary sinus. Mild multilevel degenerative disc disease of the cervical spine. IMPRESSION: 1. Approximately 80% stenosis at the origin of the right internal carotid artery secondary to calcifi ed plaque. 2. Approximately 60% stenosis at the origin of the left internal carotid artery secondary to calcifie d plaque. 3. Mild stenosis origin of the bilateral extracranial carotid arteries. 4. Mild stenosis at the origins of the left common carotid and left subclavian arteries. [facility], , 03/19/2024 3:38 PM
== END | disposition home or self-care (01) ==
LOC: RADCTMAIN 13:56
PROVIDERS: ATTEND Internal Medicine Clinical Cardiac Electrophysiology
DX: I65.23 Occlusion and stenosis of bilateral carotid arteries (principal); I65.8 Occlusion and stenosis of other precerebral arteries
CPT/HCPCS: 70498; Q9967